=== PATIENT | female | born 1985 | race Caucasian/White ===

== ENCOUNTER 2017-03-15 00:12 | Emergency (ER) | payer MEDICAID ==
[2017-03-15 00:53] VITALS: BP 122/77
== END 2017-03-15 00:53 | disposition home or self-care (01) ==
LOC: ED 00:12
DX: L03.213 Periorbital cellulitis (principal)

== ENCOUNTER 2018-09-02 14:45 | Emergency (ER) | payer MEDICAID ==
[~2018-09-02] VITALS: Ht 152.4 cm; Wt 44.5 kg
[2018-09-02 14:57] VITALS: Ht 152.4 cm; Wt 44.5 kg
[2018-09-02 17:20] VITALS: BP 111/53
== END 2018-09-02 17:20 | disposition home or self-care (01) ==
LOC: ED 14:45
DX: S43.401A Unspecified sprain of right shoulder joint, initial encounter (principal); S16.1XXA Strain of muscle, fascia and tendon at neck level, initial encounter; E11.9 Type 2 diabetes mellitus without complications; X50.9XXA Other and unspecified overexertion or strenuous movements or postures, initial encounter; Y93.89 Activity, other specified; Y92.89 Other specified places as the place of occurrence of the external cause; Y99.8 Other external cause status
CPT/HCPCS: J1885

== ENCOUNTER 2019-03-30 23:40 | Inpatient (IN) | payer MEDICAID ==
[~2019-03-30] VITALS: Ht 154.9 cm; Wt 48.2 kg
[2019-03-30 23:45] VITALS: Ht 154.9 cm; Wt 48.2 kg
--- NOTE | 2019-03-31 00:17 | NUR ---
PT PRESENTS TO ED WITH C/O L FOOT PAIN THAT RADIATES UP TO HER BUTTOCKS AREA NEAR THE SCIADICA. PT STATES SHE HAS TYPE 2 DIABETES AND TAKES METFORMIN. PT STATES THAT WHEN SHE WOKE UP AT 8AM THIS MORNING SHE COULDNT STAND BECAUSE SHE FELT THE PAIN IN HER FOOT/ ANKLE AND SHE COULDNT STAND BECAUSE THE PAIN WOULD RADIATE UP TO HER LOWER BACK. PT STATES THAT THEY ALSO FEEEL NUMB AND TINGLY. PT DENIES THAT FEELING ON THE R SIDE. PT CSM ARE INTACT, HOWEVER CAP REFILL IS DELAYED TO 4. PT IS AXO X4. PT DENIES ANY OTHER PAIN AT THIS TIME. RESP ARE EQUAL AND UNALBORED. NAD AWAITING MSE
--- NOTE | 2019-03-31 00:26 | NUR ---
[facility]EN INGRAM CONSULTING WITH MD ABDALLA FOR DISCREPANCY IN PT TEMPARTURE TO LE. PT IS WARM TO TOUCH IN RLE AND COOL TO TOUCH IN LLE. PT ALSO HAS SEVER PAIN AND DRY SKIN TO LLE. KAREN INGRAM CONCERNED FOR PAD.
--- NOTE | 2019-03-31 00:45 | NUR ---
PT ATTEMPTED TO PROVIDE URINE AT THIS TIME, PT STATES SHE IS UNABLE TO. PT GIVEN WATER WITH PERMISSION FROM KAREN INGRAM. WILL WAIT SHORTLY TO SEE IF PT CAN PROVIDE URINE PRIOR TO MEDICATING PT
[2019-03-31 01:07] LABS: CALCIUM 9.4 mg/dL (8.5-10.1); CHLORIDE SERUM 103 mmol/L (98-107); CREATININE SERUM 0.5 mg/dL (0.6-1.0); GFR1 > 60 mL/min; GLUCOSE SERUM 104 mg/dL (74-106); POTASSIUM SERUM 3.8 mmol/L (3.5-5.1); SODIUM SERUM 141 mmol/L (136-145)
[2019-03-31 01:12] LABS: ALBUMIN 3.6 g/dL (3.4-5.0); ALKALINE PHOSPHATASE 165 U/L (46-116); ALT/SGPT 23 U/L (14-59); AST/SGOT 14 U/L (15-37); BILIRUBIN TOTAL 0.29 mg/dL (0.20-1.00); MAGNESIUM 1.8 mg/dL (1.8-2.4)
[2019-03-31 01:28] LABS: BASOPHIL % 0.4 % (0-2); PLATELET COUNT 194 x10^3mcL (130-400); RED CELL DISTRIBUTION WIDTH 12.4 % (11.5-14.5)
--- NOTE | 2019-03-31 03:04 | NUR ---
PT WAS NOT DISCHARGED DUE TO ELEVATED HR. MD ABDALLA CONSULTED AND CONFIRMED HE WOULD LIKE TO RUN MORE TESTS. PT MOVED TO BED 5 AND REPORT GIVEN TO SADIE OLSON TO RESUME CARE OF PT
--- NOTE | 2019-03-31 03:06 | NUR ---
REPORT RECIEVED FROM Renetta JONAS RN. 20G IV INSERTED. 1000ML NS BOLUS STARTED.
[2019-03-31 03:49] LABS: UA SPECIFIC GRAVITY >=1.030 (1.005-1.035); microscopic required? YES; urine erythrocyte NEGATIVE (NEGATIVE)
[2019-03-31 03:53] LABS: AMPHETAMINE QUAL UR POSITIVE (See below)
--- NOTE | 2019-03-31 03:56 | NUR ---
PT AWAKE AND ALERT, LAYING IN POSITION OF COMFORT. PT EATING PB&J SANDWICH. PT REPORTS NO PAIN, JUST NUMBNESS IN AFFECTED LEG. VSS, RESPS E/U, NAD NOTED AT THIS TIME.
--- NOTE | 2019-03-31 04:36 | NUR ---
REPORT GIVEN TO BURKE OLSON
[2019-03-31] MEDS ORDERED: METFORMIN HYDR500 M1 PO (04:47)
--- NOTE | 2019-03-31 05:24 | NUR ---
PT REPORT CALLED TO REBEKAH OLSON TO ASSUME PT CARE.
--- NOTE | 2019-03-31 05:35 | NUR ---
PT TRANSFERRED TO [facility] BY [facility] BY MYSELF AND GIANCARLO EMT. PT ON MANAGER [employer]RI[employer] FOR TRANSFER. PT ACCEPTED BY REBEKAH OLSON TO ASSUME PT CARE. PT AOX4, RESP EVEN AND UNLABORED, NO ACUTE DISTRESS NOTED.
--- NOTE | 2019-03-31 05:45 | NUR ---
RECEIVED PT FROM ED VIA [facility], ACCOMPANIED BY RN. PT ABLE TO MOVE FROM [facility] TO BED. NO ACUTE DISTRESS NOTED. TELE #[address] 120. IVL PATENT AND INTACT. EVEN AND UNLABORED RESPIRATIONS ON RA. DENIES ANY PAIN AT THIS TIME. ORIENTED PT TO ROOM AND SURROUNDINGS. BED IN LOWEST POSITION. SIDE RAILS UPX2. CALL LIGHT WITHIN REACH. WILL CONTINUE TO MONITOR AND ENDORSE TO ONCOMING SHIFT.
[2019-03-31 05:51] VITALS: BP 145/75
[2019-03-31 05:57] LABS: CHOLESTEROL/HDL RATIO 2.3; PHOSPHOROUS 4.1 mg/dL (2.5-4.9)
--- NOTE | 2019-03-31 05:57 | NUR ---
PT TRANSFERRED TO [facility] BY [facility] BY MYSELF AND GIANCARLO EMT. PT ON ANIME ARTIST FOR TRANSFER. PT AOX4, RESP EVEN AND UNLABORED, NO ACUTE DISTRESS NOTED. PT MOVED FROM [facility] TO BED WITHOUT INCIDENT. PT ACCEPTED BY REBEKAH OLSON TO ASSUME PT CARE.
[2019-03-31 06:03] LABS: FREE T4 5.16 ng/dL (0.76-1.46)
[2019-03-31 06:04] LABS: FREE THYROXINE INDEX 10.8 ug/dL (1.4-4.5); T3 TOTAL 4.17 ng/mL; T4(THYROXINE) 22.9 ug/dL (4.7-13.3)
--- NOTE | 2019-03-31 07:15 | NUR ---
RECEIVED PT FROM NIGHT NURSE. PT IS LAYING DOWN IN BED WITH HOB UP RESTING WITH EYES CLOSED. PT LOOKS TO BE IN NO ACUTE DISTRESS AT THIS TIME. RESPIRATIONS EVEN AND UNLABORED ON ROOM AIR. IV SITE PATENT WITH NO SIGNS OF ERYTHEMA OR SWELLING WITH IV FLUIDS INFUSING. TELE MONITOR PRESENT. BED IN LOWEST POSITION, CALL LIGHT WITHIN REACH. WILL CONITNUE TO MONITOR.
[2019-03-31 08:38] LABS: CALCIUM 7.9 mg/dL (8.5-10.1); CHLORIDE SERUM 108 mmol/L (98-107); CREATININE SERUM 0.4 mg/dL (0.6-1.0); GFR1 > 60 mL/min; GLUCOSE SERUM 143 mg/dL (74-106); POTASSIUM SERUM 3.5 mmol/L (3.5-5.1); SODIUM SERUM 142 mmol/L (136-145)
[2019-03-31 08:50] LABS: BASOPHIL % 0.3 % (0-2); PLATELET COUNT 158 x10^3mcL (130-400); RED CELL DISTRIBUTION WIDTH 12.3 % (11.5-14.5)
--- NOTE | 2019-03-31 09:20 | NUR ---
PT IS ASKING WHEN SHE WILL BE ABLE TO GO HOME. PT STATING THAT SHE NEEDS TO BE HOME WITH HER KIDS AND WOULD LIKE TO GO HOME NOW. INFORMED PT OF THE RISKS OF LEAVING AMA AND ASKED TO WAIT FOR THE TO COME IN TO SEE HER. PT AGREED TO WAIT FOR
--- NOTE | 2019-03-31 09:30 | NUR ---
ASSISTED PT TO THE BATHROOM. PT UNABLE TO BEAR WEIGHT ON THE LEFT FOOT. PT COMPLAINS OF PAIN WHEN BEARING WEIGHT AND THE PAIN RADIATES TO THE LEFT LEG. WHEELCHAIR AT BEDSIDE. ASSISTED PT TO WHEELCHAIR AND BROUGHT PT TO BATHROOM AND BROUGHT PT BACK TO BED. MADE PT COMFORTABLE IN BED AND PT STATES PAIN IS TOLERABLE WHILE IN BED. SCD PRESENT. CALL LIGHT WITHIN REACH, WILL CONTINUE TO MONITOR.
[2019-03-31 10:00] VITALS: BP 133/74
--- NOTE | 2019-03-31 11:44 | NUR ---
PT COMPLAINING OF PAIN 10/10 TO LEFT LEG AND IS REQUESTING STRONGER PAIN MEDICATION. REPOSITIONED PT AND ELEVATED LEG ON A PILLOW. WILL MEDICATE ACCORDING TO EMAR.
--- NOTE | 2019-03-31 12:55 | NUR ---
PT COMPLAINING OF FEELING NAUSEATED. PROVIDED PT WITH EMESIS BASIN, HOB UP. WILL MEDICATE ACCORDING TO EMAR.
[2019-03-31 13:41] VITALS: BP 145/87
--- NOTE | 2019-03-31 15:27 | NUR ---
Discount pharmacy card and list to low cost medical clinics given to patient by Cole.
--- NOTE | 2019-03-31 15:45 | NUR ---
PT IS LAYING DOWN IN BED WITH HOB UP RESTING. PT LOOKS TO BE IN NO ACUTE DISTRESS AND DENIES ANY PAIN AT THIS TIME. IV SITE PATENT WITH NO SIGNS OF ERYTHEMA OR SWELLING WITH IV FLUIDS INFUSING. BED IN LOWEST POSITION, CALL LIGHT WITHIN REACH. WILL CONITNUE TO MONITOR.
--- NOTE | 2019-03-31 16:45 | NUR ---
PT ABLE TO BEAR WEIGHT ON LEFT FOOT. PT STATES THAT SHE FEELS SOME WHEN BEARING WEIGHT AND FLEXING OF THE LEFT ANKLE BUT THE PAIN IS NOT BAD THIS MORNING.
[2019-03-31 17:49] VITALS: BP 123/60
--- NOTE | 2019-03-31 18:58 | NUR ---
PT IS LAYING DOWN IN BED WITH HOB UP RESTING WITH EYES CLOSED. PT LOOKS TO BE IN NO ACUTE DISTRESS AND DENIES ANY PAIN. IV SITE PATENT WITH NO SIGNS OF ERYTHEMA OR SWELLING WITH IV FLUIDS INFUSING. BED IN LOWEST POSITION, CALL LIGHT WITHIN REACH. WILL ENDORSE TO ONCOMING SHIFT.
--- NOTE | 2019-03-31 19:52 | NUR ---
PT CURRENTLY RESTING IN BED, NO ACUTE DISTRESS. A/O X4. NO TELE, MED/SURG. DENIES CHEST PAIN. PULSES PALPABLE IN ALL EXTREMITIES, LLE TRACE EDEMA NOTED. LUNG SOUNDS CTA BILATERALLY, DENIES SOB. BOWEL SOUNDS ACTIVE, LAST BM 03/30/19. VOIDING WELL. MILD LLE WEAKNESS, AMBULATORY. SKIN INTACT. DENIES PAIN AT THIS TIME. IV PATENT AND INTACT. BED IN LOWEST POSITION, SIDE RAILS UP X2, CALL LIGHT WITHIN REACH. WILL CONTINUE TO MONITOR.
[2019-03-31 21:43] VITALS: BP 107/63
--- NOTE | 2019-03-31 23:53 | NUR ---
PT CURRENTLY RESTING IN BED, NO ACUTE DISTRESS. CARE ENDORSED TO WESLEY ENRIQUEZ.
--- NOTE | 2019-04-01 05:32 | NUR ---
PT REMAINED ASLEEP. NO DISTRESS NOTED. DENIES ANY PAIN AT THIS TIME. BED IN LOWEST POSITION,CALL LIGHT WITHIN REACH. WILL CONTINUE TO MONITOR.
[2019-04-01 06:00] VITALS: BP 116/78
[2019-04-01 06:29] LABS: CALCIUM 8.9 mg/dL (8.5-10.1); CARBON DIOXIDE 30.7 mmol/L (21-32); CHLORIDE SERUM 104 mmol/L (98-107); CREATININE SERUM 0.4 mg/dL (0.6-1.0); GFR1 > 60 mL/min; GLUCOSE SERUM 112 mg/dL (74-106); POTASSIUM SERUM 4.3 mmol/L (3.5-5.1); SODIUM SERUM 141 mmol/L (136-145)
[2019-04-01 06:52] LABS: BASOPHIL % 0.3 % (0-2); PLATELET COUNT 169 x10^3mcL (130-400); RED CELL DISTRIBUTION WIDTH 12.5 % (11.5-14.5)
--- NOTE | 2019-04-01 07:03 | NUR ---
CARE ENDORSED TO DAY NURSE
--- NOTE | 2019-04-01 07:13 | NUR ---
RECEIVED PT FROM SHIFT NURSE A/OX4 LYING IN BED. DENIES ANY LEG PAIN AT THIS TIME. IV INTACT AND PATENT. BED IN LOW POSITION. CALL LIGHT WITHIN REACH. WILL CONTINUE TO MONITOR.
[2019-04-01 08:40] VITALS: BP 111/58
[2019-04-01] MEDS ORDERED: NEU300 PO (09:45)
--- NOTE | 2019-04-01 10:24 | NUR ---
PT ASLEEP BUT AROUSABLE. CALL LIGHT WITHIN REACH. WILL CONTINUE TO MONITIOR.
[2019-04-01 12:16] VITALS: BP 133/56
[2019-04-01 13:21] VITALS: BP 133/56
--- NOTE | 2019-04-01 14:00 | NUR ---
PT A/OX4 UPON DC. DENIES ANY PAIN AT THIS TIME. IV REMOVED AND CATH INTACT. EDUCATION PROVIDED. NEW RX GIVEN. INSTRUCSTED TO FOLLOW UP WITH PCP WITHIN 2-3 DAYS. PT VERBALIZED UNDERSTANDING. PERSONAL BELONGINGS TAKEN HOME. INSTRUCTED TO INFROM NURSES STATION BEFORE LEAVING.
--- NOTE | 2019-04-01 14:11 | NUR ---
PT ACCOMPANIED BY [employer] TO LOBBY VIA WHEELCHAIR.
== END 2019-04-01 14:06 | disposition home or self-care (01) | DRG 48 ==
LOC: ED 23:40 → DU 03-31 04:53 → MU 03-31 04:53 → EDBEDREQ 03-31 05:01 → DU 03-31 05:48 → MU 03-31 12:39
PROVIDERS: Emergency Medicine; Internal Medicine; ADMIT Internal Medicine
DX: E11.42 Type 2 diabetes mellitus with diabetic polyneuropathy (principal); I10 Essential (primary) hypertension; N39.0 Urinary tract infection, site not specified; M54.32 Sciatica, left side; Z68.1 Body mass index [BMI] 19.9 or less, adult; Z79.84 Long term (current) use of oral hypoglycemic drugs
CPT/HCPCS: 82962; 83880; 84439; 97116-GP; G0378; J0696; J2270; J2405; J7030; Q0092